=== PATIENT | female | born 1970 | race Caucasian/White ===

== ENCOUNTER 2024-12-13 18:41 | Emergency (ER) | payer BC, SELFPAY ==
[2024-12-13 18:43] VITALS: BP 141/86
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
[2024-12-13] MEDS: TORADOL 15 MG IM (22:01)
[2024-12-13 22:06] VITALS: BP 121/83
== END 2024-12-13 22:13 | disposition home or self-care (01) ==
LOC: EMR 18:41
PROVIDERS: EMERGENCY PHYSICIAN Student in an Organized Health Care Education/Training Program; FAMILY PHYSICIAN Family Medicine
DX: S09.90XA Unspecified injury of head, initial encounter (principal); S00.03XA Contusion of scalp, initial encounter; S50.812A Abrasion of left forearm, initial encounter; V00.141A Fall from scooter (nonmotorized), initial encounter
CPT/HCPCS: 99284; 96372; 70450